=== PATIENT | male | born 1970 | race Caucasian/White ===

== ENCOUNTER → 2019-09-06 | Outpatient (CLI) | payer OTHER ==
[~2019-09-06] MED LIST: ACID CONTROL20 MG; ACIPHEX 20 MG T20 MG PO; ASPIRIN EC81 M1 PO; BACTRIM DS TAB1 EACH PO; CARAFATE 1 GM TA1 GM PO; FEXOFENADINE HC30 MG; KEFLEX500 MG PO; LIORESAL 10 MG10 MG PO; MOBIC15 MG PO; NITROGLYCERIN0.4 MG SL; PREDNISONE50 MG PO; PROTONIX40 M2 PO; XANAX 0.25 MG0.25 MG PO; ZANTAC
--- NOTE | 2019-09-06 17:21 | EXE ---
[place] [address] STRESS ECHOCARDIOGRAM Name: ROMAINE BLACKMON Room: [facility]#: [id number] Admission: 09/06/19 Attend Phys: Renetta Hardy DO Discharge: Date of : 70 Date of Service: 09/06/19 1721 Report #: [id number] THIS REPORT FOR: //name// APPROVED REPORT Study performed: 09/06/2019 15:07:17 Exam: Stress Echocardiogram Indication: Chest pain , Dyspnea Patient Location: Out-Patient Stress Nurse: Genevieve Simpson RN Supervising Physician: Mitch Neff MD Ht: 6 ft 2 in HR: 84 bpm BP: 156/97 mmHg Medical History Cardiac Risk Factors: HTN, FHX of CAD Procedure The patient underwent an Exercise Stress Test using the Americo Protocol. Blood pressure, heart rate, and EKG were monitored. An Echocardiogram was performed by personnel technician in four stages in quad fashion. At peak stress, four selected images were obtained and placed side by side with resting images for comparison. Stress Test Details Stress Test: Exercise stress testing was performed using a Americo protocol. HR Resting HR: 84 bpm Max Heart Rate (APMHR): 171 bpm Max HR Achieved: 164 bpm Target HR (85% APMHR): 145 bpm % of APMHR: 95 Recovery HR: 99 bpm HR response to stress: Normal HR response to stress BP Resting BP: 156/97 mmHg Max BP: 210/99 mmHg Recovery BP: 138/97 mmHg BP response to stress: Normal blood pressure response to stress. ECG Resting ECG: sinus rhyhm, minor nonsp[place]iific [place] [address] STRESS ECHOCARDIOGRAM Name: ROMAINE BLACKMON Room: [facility]#: [id number] Admission: 09/06/19 Attend Phys: Renetta Hardy DO Discharge: Date of : 70 Date of Service: 09/06/19 1721 Report #: [id number] Stress ECG: no ischemic st-t changes Arrhythmia: rare isolated pvc's Clinical Reason for Termination: Completed protocol Exercise duration: 7 min 53 sec Highest Stage Achieved: Stage 3: 3.4 mph at 14% grade. Exercise capacity: 9.97 METs Pre-Stress Echo The resting Echocardiogram showed normal left ventricular contractility with an estimated Ejection Fraction of about 55-60%. Normal wall motion in all segments on baseline images. Post-Stress Echo The stress Echocardiogram showed normal left ventricular contractility with an estimated Ejection Fraction of about >70%. Normal augmentation of wall motion in all segments on post stress images. Conclusion Clinical Response: Non-ischemic Exercise Capacity: Average Stress ECG Response: Non-ischemic Stress Echo Images: Non-ischemic Other Information Study Quality: Fair <ELECTRONICALLY SIGNED> By: Mitch Neff MD, FACC 09/06/191720 20 20 Mitch Neff MD, FACC /INF
== END ==
LOC: M.CRD 14:26
DX: R07.9 Chest pain, unspecified (principal); R06.00 Dyspnea, unspecified; I10 Essential (primary) hypertension; I25.10 Atherosclerotic heart disease of native coronary artery without angina pectoris

== ENCOUNTER → 2019-10-04 | Day surgery (SDC) | payer OTHER ==
[~2019-10-04] MED LIST changes: +ALLOPURINOL 10100 M1 PO; +LISINOPRIL20 MG PO; +OXYCODONE HCL 55 MG PO; +ZYRTEC10 M2 PO
--- NOTE | 2019-10-04 10:58 | EKG ---
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1970 Requested By: Edil Pelaez Order Number: [id number] Reading MD: Thad Lowe Measurements Intervals [place] Rate: 73 P: 14 HI: 146 QRS: 6 QRSD: 117 T: 25 QT: 396 QTc: 437 Interpretive Statements Sinus rhythm nonspecific t wave changes noted Nonspecific intraventricular conduction delay Low voltage, precordial leads Compared to ECG 10/16/2013 16:47:31 Sinus arrhythmia no longer present Electronically Signed On 10-04-2019 10:58:11 DIRECTOR MARKET INTELLIGENCE by Thad Lowe [email or web address] <ELECTRONICALLY SIGNED> By: Thad Lowe MD, [facility] 10/04/19 1058 1004 1004 Thad Lowe MD, FAC /EPI
--- NOTE | 2019-10-06 15:07 | PATH ---
[facility] [address] [place] [address] PATHOLOGY RPT PROCEDURE Name: NASEEM RIGGS Room: [facility]#: [id number] Admission: 10/04/19 Date of : 70 Discharge: Report #: [id number] Path Case #: [id number] [facility] Accession Number: [id number] . 01 Material submitted: . hip - LEFT HIP MASS. Modifiers: left . 01 Clinical history: . Mass left hip . 02 Diagnosis: Left hip mass: - Fat necrosis with fibrosis, negative for malignancy. (VIIR:naina; 10/06/2019) R 10/06/2019 1230 Local . 02 Electronically signed: . Jonathan Taylor MD, Pathologist NPI- [id number] . 01 Gross description: . Received in formalin labeled "Naseem Riggs, left hip mass," is a grossly well circumscribed possibly encapsulated segment of pale yellow-higgins to hemorrhagic adipose tissue measuring 3.5 x 3.4 x 1.9 cm in greatest dimensions. Skin is not identified grossly. The specimen is inked black and serially sectioned to reveal pale higgins to yellow-higgins and focally hemorrhagic cut surfaces. Dermatology Technician sections are submitted in cassette A1. (DAC; 10/05/2019) XDC/XDC 10/06/2019 1230 Local . 02 Pathologist provided ICD-10: I96, R22.42 . 02 CPT . 392600 Specimen Comment: A courtesy copy of this report has been sent to [phone], [phone] Specimen Comment: [phone] Specimen Comment: Report sent to and Performed at: [address], [place], [place] [id number] MD George Dimas MD Phone: [phone] Performed at: 02 [facility] [address], [place], [place] [id number] MD Jonathan Taylor MD Phone: [phone]
--- NOTE | 2019-10-11 11:24 | OP ---
[address] [address] OPERATIVE REPORT Name: ROMAINE BLACKMON Room: [facility]#: [id number] Admission: 10/04/19 Attend Phys: Edil Pelaez DO Discharge: Date of : 70 Report #: [id number] THIS REPORT FOR: //name// CC: Edil Pelaez DO [facility] DICTATED BY: Margo Schmidt DO DATE OF SERVICE: 10/04/2019 Margo Schmidt DO, [id number], dictating operative report for Edil Pelaez DO PREOPERATIVE DIAGNOSIS: Left thigh mass. POSTOPERATIVE DIAGNOSIS: Left thigh mass. PROCEDURE PERFORMED: Excision of left thigh mass with layered closure. PRIMARY SURGEON: Edil Pelaez DO REGENERATOR OPERATOR: Margo Schmidt DO, PGY2 SECOND CONCILIATOR: MANUEL [place] ANESTHESIA: General and local. ESTIMATED BLOOD LOSS: 10 mL FINDINGS: Left thigh mass with the appearance of a lipoma measuring approximately 4 cm x 4 cm x 2.5 cm. COMPLICATIONS: None. INDICATIONS FOR PROCEDURE: The patient is a pleasant 49-year-old gentleman who presented to our office with complaint of a left thigh or hip mass. He states he first noticed it nearly 2 years ago, began small round the size of a marble. Since that time, it is more than doubled in size and causes him pain throughout the day, especially with activity. No skin changes in the area. No drainage. It was recommended that he undergo excision of this mass in the operating room. The risks, benefits, possible complications to include infection, bleeding, pain or numbness at the incision site, recurrence of the mass, possible need for further surgical excision, wound complications, anesthesia risks and other common complications associated with this procedure were discussed with the patient in great detail. He voiced complete understanding [place] [address] OPERATIVE REPORT Name: ROMAINE BLACKMON Room: [facility]#: [id number] Admission: 10/04/19 Attend Phys: Edil Pelaez DO Discharge: Date of : 70 Report #: [id number] with surgery. DESCRIPTION OF PROCEDURE: Informed consent was obtained. The patient was taken to the operating room and placed supine on the operating room table. General anesthesia was induced without difficulty. SCDs were placed on bilateral lower extremities. Preoperative antibiotics were given. The patient was positioned lazy lateral position with a bump under the left side of his body. All pressure points were padded. The left thigh and hip area were prepped and draped in the standard sterile fashion. Timeout was performed to ensure correct patient and procedure. A 4-cm horizontal incision was made over the mass using a #10 blade scalpel. Incision was carried down to the subcutaneous tissue using electrocautery until we reached what appeared to be a lipoma. Combination of blunt dissection and electrocautery were used to completely dissect around the mass until it was easily excised. It was passed off for permanent specimen and measured approximately 4 cm x 4 cm x 2.5 cm. Wound was inspected to ensure hemostasis. Wound was then closed in a layered fashion. Subcutaneous tissue was closed using 0 Vicryl suture in a simple interrupted and inverted fashion. Skin was closed using 4-0 Monocryl in a running subcuticular fashion. Approximately 20 mL of 0.5% Marcaine were used for local anesthesia. Surgical site was cleansed and dried. Sterile dressing was applied using Mastisol, Steri-Strips, Tegaderm, 4 x 4s and Medipore tape. The patient tolerated the procedure very well. He was allowed to awaken in the operating room, was transferred to the PACU in stable condition. <ELECTRONICALLY SIGNED> By: Edil Pelaez DO 10/11/19 1124 1243 1332Aalicia Pelaez DO /nt
== END | disposition home or self-care (01) ==
LOC: M.SUR 09:25
DX: M79.89 Other specified soft tissue disorders (principal); I96 Gangrene, not elsewhere classified; Z98.890 Other specified postprocedural states; Z79.899 Other long term (current) drug therapy; Z88.8 Allergy status to other drugs, medicaments and biological substances